=== PATIENT | male | born 1955 ===

== ENCOUNTER 2018-03-23 14:56 | Emergency (ER) | payer SELFPAY ==
[2018-03-23 15:04] VITALS: BMI 23.0
[2018-03-23 15:05] VITALS: RESP 18
[2018-03-23] MEDS ORDERED: Morphine 4 mg/ml ISec IVP STA (15:16)
[2018-03-23] MEDS ORDERED: Sodium Chloride 0.9% 1,000 ML IV SCH (15:30)
--- NOTE | 2018-03-23 15:32 | ED PDOC ---
Arrival/HPI - General Chief Complaint: Abdominal Pain Time Seen by Provider: 03/23/18 15:07 Historian: Patient - History of Present Illness Narrative History of Present Illness (Text): A 62 year old male, whose past medical history includes appendectomy and diabetes, presents to the emergency department with a complaint of left lower abdominal pain. The patient notes that he was working on the [employer] when the pain began. He reports that he was not doing anything extraneous, but when the pain began, he collapsed in pain. He reports an episode of vomiting, nbnd. No dark or bloody stool. The patient is a smoker and occasional drinker. The patient denies fevers, chills, headache, dizziness, chest pain, shortness of breath, dyspnea on exertion, cough, back pain, neck pain, urinary changes, or any other complaint. Time/Duration: 1-3 hours Symptom Onset: Sudden Symptom Course: Unchanged Activities at Onset: Rest, Light Context: Home Past Medical History - Provider Review Nursing Documentation Reviewed: Yes - Infectious Disease Hx of Infectious Diseases: None - Endocrine/Metabolic Hx Diabetes Mellitus Type 2: Yes - Psychiatric Hx Substance Use: No - Surgical History Hx Appendectomy: Yes - Anesthesia Hx Anesthesia Reactions: No Hx Malignant Hyperthermia: No Family/Social History - Physician Review Nursing Documentation Reviewed: Yes Family/Social History: No Known Family HX Smoking Status: Never Smoked Hx Alcohol Use: Yes Hx Substance Use: No Allergies/Home Meds Allergies/Adverse Reactions: Allergies No Known Allergies Allergy (Verified 03/23/18 15:05) Review of Systems - Physician Review All systems were reviewed & negative as marked: Yes - Review of Systems Constitutional: absent: Fevers Respiratory: absent: SOB, Cough Cardiovascular: absent: Chest Pain, HOLLIS Gastrointestinal: Abdominal Pain, Nausea, Vomiting. absent: Constipation, Diarrhea Genitourinary Male: absent: Urinary Output Changes Musculoskeletal: absent: Back Pain, Neck Pain Neurological: absent: Headache, Dizziness Physical Exam Vital Signs Reviewed: Yes Vital Signs Temp Pulse Resp BP Pulse Ox 03/23/18 15:03 97.9 F 76 18 156/95 H 100 Temperature: Afebrile Blood Pressure: Hypertensive Pulse: Regular Respiratory Rate: Normal Appearance: Positive for: Well-Appearing, Non-Toxic, Comfortable Pain Distress: None Mental Status: Positive for: Alert and Oriented X 3 - Systems Exam Head: Present: Atraumatic, Normocephalic Pupils: Present: PERRL Extroacular Muscles: Present: EOMI Conjunctiva: Present: Normal Mouth: Present: Moist Mucous Membranes Neck: Present: Normal Range of Motion. No: Meningeal Signs Respiratory/Chest: Present: Clear to Auscultation, Good Air Exchange. No: Respiratory Distress, Accessory Muscle Use Cardiovascular: Present: Regular Rate and Rhythm, Normal S1, S2. No: Murmurs Abdomen: Present: Tenderness (left lower quadrant/ suprapubic tenderness.), Guarding (Mild guarding). No: Distention, Peritoneal Signs, Mass/Organomegaly (No palpable masses) Back: Present: Normal Inspection. No: CVA Tenderness Upper Extremity: Present: Normal Inspection. No: Cyanosis, Edema Lower Extremity: Present: Normal Inspection. No: Edema Neurological: Present: GCS=15, CN II-XII Intact, Speech Normal Skin: Present: Warm, Dry, Normal Color. No: Rashes Psychiatric: Present: Alert, Oriented x 3, Normal Insight, Normal Concentration Medical Decision Making ED Course and Treatment: 03/23/18 15:34 Impression: A 62 year old male presents to the emergency department with a complaint of sudden onset left lower abdominal pain. Writhing in pain on exam in [facility]. Abdominal TTP, No CVAT. Likely Kidney stone. No trauma or fall. No fever, chills or night sweats. No chest pain or sob. Plan: -- EKG -- Abdomen CT -- Chest X-ray -- Morphine, Zofran, and IV Fluids -- Urinalysis -- Labs -- Reassess and disposition Progress Notes: Morphine ordered, pain improved Bedside US done w/ out appreciable distension in Abd. Aorta. Negative FAST. labs largely unremarkable, pending UA toradol ordered, pain greatly improved CT resulted w/ perinephric stranding no CVAT on exam. Pending UA 03/23/18 19:25 urine unremarkable, remains w/ out CVAT CT findings of perinephric stranding 2/2 Pain improved tolerating clears clear for d/c home, endorsed w/ ANA [place]: spanish speaking importance of followup, straining need, medications prescribed and return indications. Family agreeable. - Lab Interpretations I have reviewed the lab results: Yes - RAD Interpretation Narrative RAD Interpretations (Text): Chest X-ray Signed By: Zaid Andrade MD Date Signed: 03/23/18 1641 IMPRESSION: No active disease. PROCEDURE: CT Abdomen and Pelvis with contrast Signed By: Zaid Andrade MD Date Signed: 03/23/18 174 IMPRESSION: 2 mm stone in the urinary bladder near the left ureterov esical junction. Upper tract findings on the left, perinephric stranding and edema consistent with recently passed stone. Gastric distension without visible/ mechanical obstructing lesion. Radiology Orders: 03/23/18 15:12 CHEST PORTABLE [RAD] Stat 03/23/18 15:23 ABDOMEN & PELVIS [ABD & PELVIS IV CONTRAST ONLY] [CT] Stat - EKG Interpretation EKG Interpretation (Text): EKG: Ordered, reviewed, and independently interpreted the EKG. Rate : 71 BPM Rhythm : NSR Interpretation : No STEMI Interpreted by ED Physician: Yes Type: 12 lead EKG - Medication Orders Current Medication Orders: Sodium Chloride (Sodium Chloride 0.9%) 1,000 mls @ 100 mls/hr IV .Q10H OSCAR Discontinued Medications Morphine Sulfate (Morphine) 4 mg IVP STAT STA Stop: 03/23/18 15:17 Ondansetron HCl (Zofran Inj) 4 mg IVP STAT STA Stop: 03/23/18 15:23 - Scribe Statement The provider has reviewed the documentation as recorded by the Bernice Geller Provider Scribe Attestation: All medical record entries made by the Scribe were at my direction and p ersonally dictated by me. I have reviewed the chart and agree that the record accurately reflects my personal performance of the history, physical exam, medical decision making, and the department course for this patient. I have also personally directed, reviewed, and agree with the discharge instructions and disposition. Disposition/Present on Arrival - Present on Arrival Any Indicators Present on Arrival: No History of DVT/PE: No History of Uncontrolled Diabetes: No Urinary Catheter: No History of Decub. Ulcer: No History Surgical Site Infection Following: None - Disposition Have Diagnosis and Disposition been Completed?: Yes Diagnosis: Kidney stone Disposition: HOSPITALIZED Disposition Time: 19:18 Patient Problems: Current Active Problems Problem Status Onset Kidney stone Acute Condition: GOOD Discharge Instructions (ExitCare): Kidney Stones in Adults, Kidney Stones (DC) Additional Instructions: FOLLOWUP WITH DR. JOYNER (UROLOGY) FOR YOUR KIDNEY STONE. TRY TO STRAIN YOUR KIDNEY STONE AND BRING IT TO DR. JOYNER. TAKE THE PAIN MEDICATIONS NEEDED FOR YOUR KIDNEY STONE. RETURN IF YOU HAVE FEVER OR ANY OTHER ISSUES. DAI HERNANDEZ, thank you for letting us take care of you today. Your provider was Ko Nevarez and you were treated for ABDOMINAL PAIN. The emergency medical care you received today was directed at your acute symptoms. If you were prescribed any medication, please fill it and take as directed. It may take several days for your symptoms to resolve. Return to the Emergency Department if your symptoms worsen, do not improve, or if you have any other problems. Please contact your doctor or call one of the physicians/clinics you have been referred to that are listed on the Patient Visit Information form that is included in your discharge packet. Bring any paperwork you were given at discharge with you along with any medications you are taking to your follow up visit. Our treatment cannot replace ongoing medical care by a primary care prov ider outside of the emergency department. Thank you for allowing the [facility] team to be part of your care today. If you had an X-Ray or CT scan: A Radiologist will review the ED reading if any change in treatment is needed we will contact you. If you had a blood, urine, or wound culture: It will take several days for the results, if any change in treatment is needed we will contact you. If you had an STI test: It will take 48 hours for the results. Please call after 1 week if you have not heard back. Prescriptions: Ibuprofen [Motrin] 600 mg PO Q6H PRN 5 Days #20 tab PRN Reason: Pain, Moderate (4-7) oxyCODONE/Acetaminophen [Percocet 5/325 mg Tab] 1 ea PO Q12H PRN 3 Days #6 tab PRN Reason: Pain, Severe (8-10) Tamsulosin [Flomax] 0.4 mg PO DAILY 10 Days #10 cap Referrals: Adriane Joyner MD [Staff Provider] - Follow up with primary Forms: [employer] (Kinyarwanda)
[2018-03-23 15:43] LABS: BASO # 0.03 K/mm3 (0.0-2.0); BASO % 0.4 % (0.0-3.0); EOS # 0.2 (0.0-0.7); EOS % 2.2 % (1.5-5.0); GRAN # 5.24 (1.4-6.5); GRAN % 67.5 % (50.0-68.0); HEMOGLOBIN 15.8 g/dL (14.0-18.0); LYMPH # 1.9 (1.2-3.4); LYMPH % 24.1 % (22.0-35.0); MEAN CELL VOLUME 88.2 fl (80.0-105.0); MEAN CORPUSCULAR HGB CONC 36.3 g/dl (31.0-37.0); MEAN PLATELET VOLUME 9.4 fl (7.0-11.0); MONO # 0.5 (0.1-0.6); MONO % 5.8 % (1.0-6.0); RBC 4.93 10^6/uL (3.5-6.1); RED CELL DISTRIBUTION WIDTH 12.5 % (11.5-14.5); WHITE BLOOD COUNT 7.8 10^3/uL (4.5-11.0)
[2018-03-23 15:50] LABS: ALB/GLOB RATIO 1.9 (1.1-1.8); ALBUMIN 4.5 g/dL (3.0-4.8); BLOOD UREA NITROGEN 15 mg/dL (7-21); CALCIUM 9.8 mg/dL (8.4-10.5); GFR NON-AFRICAN AMERICAN > 60; LIPASE 140 U/L (23-300)
[2018-03-23 15:58] LABS: ALT/SGPT 26 U/L (7-56); AST/SGOT 18 U/L (17-59)
[2018-03-23 16:18] LABS: VENOUS BLOOD GAS BASE EXCESS 0.6 mmol/L (0.0-2.0); VENOUS BLOOD GAS PO2 51 mm/Hg (30-55); VENOUS BLOOD PH 7.36 (7.32-7.43)
[2018-03-23] MEDS ORDERED: Iohexol 350 MG/100 ML VIAL ONE (16:44)
--- NOTE | 2018-03-23 16:45 | RAD ---
Date of service: 03/23/2018 HISTORY: Abdominal pain. COMPARISON: No prior. FINDINGS: LUNGS: No active pulmonary disease. PLEURA: No significant pleural effusion identified, no pneumothorax apparent. CARDIOVASCULAR: No atherosclerotic calcification present No radiographic findings to suggest acute or significant cardiovascular disease. OSSEOUS STRUCTURES: No significant abnormalities. VISUALIZED UPPER ABDOMEN: Normal. OTHER FINDINGS: None. IMPRESSION: No active disease. Concordant results with the preliminary interpretation rendered by the emergency department physician procedure.
[2018-03-23 17:11] VITALS: O2SAT 98
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
[2018-03-23 18:28] LABS: URINE BILIRUBIN NEGATIVE (NEGATIVE); URINE BLOOD SMALL (NEGATIVE); URINE GLUCOSE (UA) >=1000 mg/dL (NEGATIVE); URINE LEUKOCYTE ESTERASE NEGATIVE Leu/uL (NEGATIVE); URINE PROTEIN NEGATIVE mg/dL (<30 mg/dL); URINE UROBILINOGEN 0.2 E.U./dL (<1 E.U./dL)
[2018-03-23 18:29] LABS: URINE APPEARANCE CLEAR (CLEAR); URINE COLOR STRAW (YELLOW)
--- NOTE | 2018-03-23 18:41 | CARD ---
APPROVED REPORT Date of service: 03/23/2018 EKG Measurement Heart [id number] <Conclusion> Normal sinus rhythm Normal ECG
[2018-03-23 18:44] LABS: URINE BACTERIA FEW (NEG); URINE WBC 0 - 2 /hpf (0-6)
[2018-03-23 19:22] VITALS: BP 151/69; PULSE 79; TEMP 98.8
== END 2018-03-23 19:40 | disposition home or self-care (01) ==
LOC: ED 14:56
DX: N20.0 Calculus of kidney (principal); E11.9 Type 2 diabetes mellitus without complications
CPT/HCPCS: 71045; 74177; 80053; 81001; 82803; 83690; 83735; 85025; 93005; 96361; 96374; 96375; 96376; 99284; J1885; J2270; J2405; J7030; Q9967